=== PATIENT | female | born 1975 | race Two or more races ===

== ENCOUNTER 2018-07-23 14:57 | Outpatient (CLI) | payer OTHER | END 2018-07-23 15:10 | disposition home or self-care (01) | LOC: SONOGRAMA 14:57 | DX: N60.11 Diffuse cystic mastopathy of right breast (principal); N60.12 Diffuse cystic mastopathy of left breast ==

== ENCOUNTER 2020-05-18 07:18 | Day surgery (SDC) | payer OTHER | END 2020-05-18 23:55 | disposition home or self-care (01) | LOC: CIR.AMB 07:18 | PROVIDERS: ATTEND Surgery | DX: N60.81 Other benign mammary dysplasias of right breast (principal); Z20.828 Contact with and (suspected) exposure to other viral communicable diseases ==